=== PATIENT | female | born 1940 | race Caucasian/White ===

== ENCOUNTER 2020-03-07 15:06 | Emergency (ER) | payer MEDICARE, BC, SELFPAY ==
[2020-03-07] VITALS (7 sets, daily range): BP systolic 105–138; BP diastolic 45–81; PULSE 65–85; RESP 18–20; TEMP 36.6; O2SAT 97–99
--- NOTE | ~2020-03-07 | CT_ITS ---
EXAMINATION: CT brain wo con INDICATION: Dizziness COMPARISON: None TECHNIQUE: Standard unenhanced head CT. The dose-length product (DLP) was 605.33 mGy-cm. The mA was a djusted according to patient size. Iterative reconstruction technique was employed. FINDINGS: There is no acute intraparenchymal hemorrhage. No evidence of mass lesion. No evidence of a cute infarction. There is mild periventricular and subcortical hypodensity probably related to small vessel ischemic disease. There is mild prominence of the sulci and ventricles related to cerebral atr ophy. Intracranial calcified cerebral atherosclerosis is noted. There are no extra-axial collections. There is no mass effect or midline shift. Changes in the globes are likely from ocular lens surgery. The visualized sinuses and mastoid air cells are well aerated. IMPRESSION: 1. No acute intracranial abnormality. 2. Age related findings. Reviewed, dictated and finalized at location A. ETT MACHINE OPERATOR
--- NOTE | 2020-03-07 15:11 | ECG_ITS ---
Measurements Intervals [place] Rate: 63 P: 57 MS: 180 QRS: 39 QRSD: 91 T: -60 QT: 336 QTc: 345 Interpretive Statements SINUS RHYTHM POSSIBLE LEFT ATRIAL ENLARGEMENT NONSPECIFIC ST & T-WAVE ABNORMALITY- DIFFUSE LEADS BORDERLINE ECG Electronically Signed On 03-07-2020 18:04:11 METAL FABRICATOR APPRENTICE by Baron Reich D.O.
[2020-03-07] MEDS: SODIUM CHLORIDE 0.9% IV 1,000 ML 999 ML IV CONT ×2 (15:37→17:16)
[2020-03-07 15:41] LABS: Ammonia 41 umol/L (9-30)
[2020-03-07 15:47] LABS: Alanine Aminotransferase 116 U/L (4-35); Albumin Level 4.1 g/dL (3.5-5.1); Alkaline Phosphatase 110 U/L (38-126); Aspartate Amino Transferase 121 U/L (14-36); Basophils Percent Auto 0.3 % (0.2-1.2); Bilirubin,Total 0.6 mg/dL (0.2-1.3); Eosinophils Absolute Auto 0.1 K/mm3 (0-0.3); Eosinophils Percent Auto 2.7 % (0-4.4); Hematocrit 27.2 % (37.0-47.0); Hemoglobin 8.6 g/dL (12.0-15.0); Immature Granulocyte Absolute 0.01 K/mm3 (0.00-0.031); Immature Granulocyte Percent A 0.3 % (0-0.5); Immature Platelet Fraction Pct 14.4 % (0.9-11.2); Lipase 811 U/L (23-300); Lymphocytes Absolute Auto 0.75 K/mm3 (0.9-3.2); Lymphocytes Percent Auto 20.4 % (18.3-44.2); Mean Corpuscular HGB Conc 31.6 g/dl (32-36); Mean Corpuscular Hemoglobin 27.9 pg (26-34); Mean Corpuscular Volume 88.3 fl (80-100); Mean Platelet Volume 13.7 fl (7.4-10.4); Monocytes Absolute Auto 0.5 K/mm3 (0.1-0.6); Monocytes Percent Auto 12.2 % (2.6-8.5); Neutrophils Absolute Auto 2.4 K/mm3 (1.3-6.7); Neutrophils Percent Auto 64.1 % (45.5-73.1); Platelet Count Result 67 k/mm3 (150-375); Red Blood Count 3.08 M/mm3 (4.2-5.4); Red Cell Distribution Width 13.8 % (11.5-14.5); White Blood Count 3.7 K/mm3 (4.5-10.0)
[2020-03-07 16:09] LABS: Anion Gap 10 mmol/L (8-16); Blood Urea Nitrogen 32 mg/dL (7-17); Calcium 10.3 mg/dL (8.4-10.2); Carbon Dioxide 25 mmol/L (22-30); Chloride 101 mmol/L (98-107); Estimated CRCL calculation 30 ml/min; Estimated Glomerular Filt Rate 36; Glucose 67 mg/dL (65-105); Sodium 136 mmol/L (137-145)
--- NOTE | 2020-03-07 17:00 | ED.GENADULT ---
HPI - General Adult General Chief complaint: Dizziness Stated complaint: Dizziness Time Seen by Provider: 03/07/20 15:13 History of Present Illness HPI narrative: Patient is a 79-year-old female who presents ER with dizziness. She reports that she has been sitting down for most of the day. She recently arrived here from [place] by car. Patient got up out of the chair and became very dizzy and reports she felt like she was moving to the left. Family reports she almost fell to the ground and they had to grab her. She then rested and got up again and felt lightheaded again so they brought her to the hospital. Patient denies any slurred speech or weakness/numbness in arm or leg. No previous history of stroke. Patient does have history of cirrhosis of liver from fatty liver disease. Reports decreased oral intake over the last couple days. Related Data Allergies Allergy/AdvReac Type Severity Reaction Status Date / Time No Known Allergies Allergy Verified 03/07/20 15:37 Review of Systems Review of Systems: All systems reviewed & are unremarkable except as noted in HPI and below Constitutional: Constitutional: Denies chills, Denies fever(s) and Denies weakness ENT: Denies nasal congestion and Denies sore throat Gastrointestinal: Gastrointestinal: Denies abdominal pain, Denies diarrhea, Denies nausea and Denies vomiting Neurologic: Reports dizziness, Denies syncope, Denies focal weakness and Denies numbness PMFSH Past Medical History Medical History (Updated 03/07/20 @ 19:07 by Marquez Nix MD) Cirrhosis of liver Esophageal varices Surgical History Surgical History (Updated 03/07/20 @ 17:04 by Marquez Nix MD) H/O esophagogastroduodenoscopy History of section Social History Social History (Updated 03/07/20 @ 17:04 by Marquez Nix MD) Alcohol intake: never Gender identity (if verbalized by the patient): Female Exam Narrative: Exam Narrative: GENERAL: Well-appearing, well-nourished, and in no acute distress. HEAD: Normocephalic, atraumatic. EYES: PERRL and EOMI. ENT: Normal-appearing left tympanic membrane. Right tympanic membrane obscured by cerumen but no impaction.auscultation. No respiratory distress. HEART: Regular rate and rhythm. Normal peripheral pulses. ABDOMEN: Soft, nontender, nondistended. EXTREMITIES: Normal range of motion. No edema. SKIN: Warm, dry, no rash. NEURO: No upper or lower extremity drift. Xqxw-[id number]-mlom and finger-nose testing normal. Sensation intact. Cranial nerves II through XII intact. Alert and oriented x3. PSYCH: Normal mood and affect. Course Course Emergency Course: Patient's orthostasis was a part solved with IV fluid. Discussed pancytopenia with the patient which she was unaware of. She certainly has profound liver disease as she has had esophageal banding recently and is followed by liver specialist. Discussed the results with her and her daughter and they will be making a follow-up appointment. Patient has been up and ambulatory with a steady gait will be discharged at this time. Vital Signs Vital signs: Vital Signs Temperature 97.9 F 03/07/20 15:08 Pulse Rate 66 03/07/20 15:08 Respiratory Rate 20 03/07/20 15:08 Blood Pressure 125/59 L 03/07/20 15:08 Pulse Oximetry 97 03/07/20 15:08 Temperature 97.9 F 03/07/20 15:08 Pulse Rate 75 03/07/20 18:11 Respiratory Rate 18 03/07/20 18:11 Blood Pressure 138/67 03/07/20 18:11 Pulse Oximetry 97 03/07/20 18:11 Medical Decision Making Vital Signs Vital Signs: Vital Signs Temperature 97.9 F 03/07/20 15:08 Pulse Rate 66 03/07/20 15:08 Respiratory Rate 20 03/07/20 15:08 Blood Pressure 125/59 L 03/07/20 15:08 Pulse Oximetry 97 03/07/20 15:08 Temperature 97.9 F 03/07/20 15:08 Pulse Rate 75 03/07/20 18:11 Respiratory Rate 18 03/07/20 18:11 Blood Pressure 138/67 03/07/20 18:11 Pulse Oximetry 97 03/07/20 18:11 Lab Data
== END 2020-03-07 19:23 | disposition home or self-care (01) ==
PROVIDERS: Emergency Provider Emergency Medicine
DX: I95.1 Orthostatic hypotension (principal); K74.60 Unspecified cirrhosis of liver
CPT/HCPCS: 36415; 70450; 80048; 80076; 82140; 83690; 85025; 85055; 93005; 96360; 96361; 99284; J7030